=== PATIENT | female | born 1970 | race Caucasian/White ===

== ENCOUNTER 2018-03-21 08:22 | Emergency (ER) | payer OTHER, MEDICAID ==
[2018-03-21] MEDS: predniSONE 20 MG TAB PO (09:22)
[2018-03-21] MEDS: ALBUTEROL 0.083% (NEB) 2.5 MG/3 ML AMP NEB (09:23)
[2018-03-21] MEDS: IPRATROPIUM (NEB) 0.5 MG/2.5 ML AMP NEB (09:23)
== END 2018-03-21 10:10 | disposition home or self-care (01) ==
LOC: FTE 08:22
DX: J06.9 Acute upper respiratory infection, unspecified (principal); I10 Essential (primary) hypertension
CPT/HCPCS: 71045; 87430; 87880; 94664; 99284-25

== ENCOUNTER 2018-04-12 17:40 | Emergency (ER) | payer SELFPAY, OTHER ==
[2018-04-12] MEDS: KETOROLAC 30 MG INJ IM (19:30)
== END 2018-04-12 19:56 | disposition home or self-care (01) ==
LOC: FTE 17:40
DX: M25.50 Pain in unspecified joint (principal); I10 Essential (primary) hypertension
CPT/HCPCS: 81025; 96372; 99284-25

== ENCOUNTER 2018-05-13 09:36 | Emergency (ER) | payer OTHER ==
[2018-05-13] MEDS: ALBUTEROL 0.083% (NEB) 2.5 MG/3 ML AMP HHN (10:31)
[2018-05-13] MEDS: IPRATROPIUM (NEB) 0.5 MG/2.5 ML AMP HHN (10:31)
[2018-05-13 10:38] LABS: ADD MAN DIFF? NO
[2018-05-13 10:41] LABS: BASOPHIL # 0.1 10^3/ul (0.0-0.1); BASOPHILS % 0.7 % (0.0-2.0); EOSINOPHILS % 0.1 % (0.0-7.0); HEMATOCRIT 40.8 % (37.0-47.0); HEMOGLOBIN 13.3 g/dl (12.0-16.0); LYMPHOCYTES % 9.8 % (15.0-51.0); MEAN CORPUSCULAR HEMOGLOBIN 27.5 pg (29.0-33.0); MEAN CORPUSCULAR HGB CONC 32.6 g/dl (32.0-37.0); MEAN CORPUSCULAR VOLUME 84.3 fl (82.0-101.0); MEAN PLATELET VOLUME 10.1 fl (7.4-10.4); MONOCYTE # 0.7 10^3/ul (0.3-0.9); MONOCYTES % 7.2 % (0.0-11.0); NEUTROPHIL # 7.9 10^3/ul (1.6-7.5); PLATELET COUNT 315 10^3/UL (140-415); RED BLOOD COUNT 4.84 10^6/ul (4.20-5.40); RED CELL DISTRIBUTION WIDTH 13.7 % (11.5-14.5)
[2018-05-13 10:41] LABS: WHITE BLOOD COUNT 9.7 10^3/ul (4.8-10.8)
[2018-05-13 10:55] LABS: ANION GAP 12 (5-13); BLOOD UREA NITROGEN 14 mg/dl (7-20); CALCIUM 9.4 mg/dl (8.4-10.2); CARBON DIOXIDE 28 mmol/L (21-31); CHLORIDE 102 mmol/L (97-110); CREATININE 0.74 mg/dl (0.44-1.00); Estimated GFR > 60 mL/min (>60); GLUCOSE 127 mg/dl (70-220); POTASSIUM 4.2 mmol/L (3.5-5.1); SODIUM 142 mmol/L (135-144)
[2018-05-13 11:05] LABS: D-DIMER 542.82 ng/ml (<460)
[2018-05-13] MEDS: KETOROLAC 30 MG INJ IM (11:49)
== END 2018-05-13 12:03 | disposition home or self-care (01) ==
LOC: FTE 09:36
DX: R05 Cough (principal); I10 Essential (primary) hypertension
CPT/HCPCS: 71046; 80048; 81025; 85025; 85378; 93005; 94664; 96372; 99285-25